=== PATIENT | female | born 1970 | race Caucasian/White ===

== ENCOUNTER 2017-07-04 11:49 | Emergency (ER) | payer MEDICAID ==
[~2017-07-04] VITALS: Ht 157.5 cm; Wt 80.5 kg
[~2017-07-04 11:49] MED LIST: ATOR40TA78 PO; CARB100C3 PO; CARB200T4 PO; CHOL10002 PO; CHOL5000 PO; CLON-364 PO; CLON0.12 PO; CLON0.1T PO; GABA-826 PO; GABA-827 PO; MELO15TA24 PO; OMEP-110 PO; TIZA2CAP PO; TIZA4TAB PO; TRAZ100T15 PO; TRAZ150T62 PO; ZOLP10TA5 PO; ZOLP5TAB6 PO
[2017-07-04 11:56] VITALS: BP 101/71
[2017-07-04] MEDS ORDERED: DIPH,PERTUSS(ACELL),TET VAC/PF 0.5 ML IM-VACC ONE ×2 (12:30→13:31)
[2017-07-04] MEDS ORDERED: ONDANSETRON ODT 4 MG PO ONE (13:00)
[2017-07-04 13:15] LABS: HEMATOCRIT 40.3 % (34.6-47.8); HEMOGLOBIN 13.7 g/dL (11.7-16.4); WHITE BLOOD COUNT 8.6 x10^3/uL (3.4-10)
[2017-07-04] MEDS ORDERED: ONDANSETRON ODT 4 MG ONE (13:24)
[2017-07-04 13:27] LABS: BLOOD UREA NITROGEN 20 mg/dL (7-18)
== END 2017-07-04 14:06 | disposition home or self-care (01) ==
LOC: ED 13:45
DX: S41.152A Open bite of left upper arm, initial encounter (principal); W57.XXXA Bitten or stung by nonvenomous insect and other nonvenomous arthropods, initial encounter; Y93.89 Activity, other specified; Y92.89 Other specified places as the place of occurrence of the external cause; Y99.8 Other external cause status
CPT/HCPCS: 36415; 80048; 82040; 85025; 90471; 90715; 99284; Q0162